=== PATIENT | female | born 1985 | race African-American/Black ===

== ENCOUNTER 2018-11-17 00:03 | Emergency (ER) | payer OTHER ==
[~2018-11-17] VITALS: Ht 172.7 cm; Wt 131.5 kg
[2018-11-17 01:15] LABS: ABSOLUTE NEUTROPHILS 1.9 thou/uL (1.4-8.2); BASOPHILS 0.6 % (0.0-2.0); EOSINOPHILS 2.1 % (0.0-3.0); HEMATOCRIT 29.2 % (37.0-47.0); HEMOGLOBIN 9.5 gm/dL (12.0-15.0); LYMPHOCYTES 34.3 % (24.0-44.0); MCH 27.1 pg (26.0-34.0); MCHC 32.5 g/dL (28.0-37.0); MCV 83.6 fL (80.0-100.0); MONOCYTES 10.3 % (1.0-8.0); PLATELET COUNT 258 thou/uL (150-400); POLYS 52.7 % (36.0-66.0); RBC 3.49 mil/uL (4.20-5.00); RDW 15.4 % (10.5-14.5); WBC 3.6 thou/uL (4.0-11.0)
[2018-11-17 01:22] LABS: CALCIUM 8.2 mg/dL (8.5-10.1); CREATININE 1.1 mg/dL (0.6-1.0); POTASSIUM 3.7 mmol/L (3.5-5.1)
[2018-11-17 03:06] VITALS: BP 150/80
== END 2018-11-17 03:08 | disposition home or self-care (01) ==
LOC: ER 00:03
PROVIDERS: Emergency Medicine
DX: G43.909 Migraine, unspecified, not intractable, without status migrainosus (principal); M79.89 Other specified soft tissue disorders